=== PATIENT | male | born 1935 | race Caucasian/White ===

== ENCOUNTER → 2016-10-29 | Outpatient (CLI) | payer MEDICARE, BC ==
--- NOTE | 2016-10-29 12:00 | RADRPT ---
PROCEDURE: XR pelvis/right hip. CLINICAL INDICATION: Hip pain TECHNIQUE: AP pelvis/AP and lateral right hip view performed COMPARISON: No prior studies are available for comparison. 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 This is associated with joint space narrow ing, subchondral sclerosis and osteophytosis. There is normal mineralization. No fractures or osse ous lesions are identified. The soft tissues are unremarkable. IMPRESSION: Moderate to severe bilateral hip osteoarthrosis. RPTAT: [facility] .Tushar Huitron MD, MD Date Time Electronically viewed and signed by .Tushar Huitron MD, MD on 10/29/2016 12:00 .B/
== END | disposition home or self-care (01) ==
LOC: HKI 09:31
PROVIDERS: ATTEND Orthopaedic Surgery
DX: M16.11 Unilateral primary osteoarthritis, right hip (principal); M25.551 Pain in right hip
CPT/HCPCS: 73502; G0463